=== PATIENT | male | born 1965 | race Hispanic/Latino ===

== ENCOUNTER 2024-03-19 12:12 | Emergency (ER) | payer SELFPAY ==
[2024-03-19 12:29] LABS: Absolute Basophils 0.1 K/uL (0-0.5); Absolute Eosinophils 0.4 K/uL (0-0.5); Absolute Monocytes 0.5 K/uL (0.1-1.3); Absolute Neutrophil 5.6 K/uL (1.8-8.0); Basophils % 0.9 % (0-1.3); Eosinophils % 4.2 % (0-4.4); Hematocrit 43.7 % (39.6-49.0); Hemoglobin 14.6 g/dL (13.6-17.9); Lymphocytes % 31.2 % (15.3-44.8); MCH 29.1 pg (27.0-35.0); MCHC 33.5 g/dL (32.0-36.0); MPV 9.2 fL (7.6-11.3); Monocytes % 5.5 % (3.3-12.3); Neutrophils % 58.2 % (41.7-73.7); Platelets 221 thou/uL (152-406); RBC Red Blood Cell Count 5.02 M/uL (4.33-5.43); Red Cell Distribution Width 13.4 % (12.1-15.2)
[2024-03-19 12:38] LABS: PT Prothrombin Time 11.3 SECONDS (9.4-12.5); PTT, Activated Partial Thromb 33.8 SECONDS (24.3-36.9); Protime INR 1.01
[2024-03-19 12:40] LABS: Anion Gap 8.1 mEq/L (5.0-15.0); Potassium 4.1 mEq/L (3.5-5.1)
[2024-03-19 13:35] LABS: D-Dimer 0.364 FEUug/mL (0-0.500)
[2024-03-19] MEDS ORDERED: CROTALIDAE ANTIVENIM 1 GM VIAL IV STA (13:36)
--- NOTE | 2024-03-19 18:43 | ER ---
Nurse's Notes [facility] Name: Tom Hong Age: 58 yrs Sex: Male : 1965 Arrival Date: 03/19/2024 Time: 12:12 Bed 2 Private MD: Diagnosis: Toxic effect of snake venom Presentation: 03/19 12:24 Chief complaint: Patient states: "About 30 minutes [employer], [place] and mb9 got bit by a latisha head snake on my left hand.". Coronavirus screen: Vaccine status: Patient reports being unvaccinated. Ebola Screen: No symptoms or risks identified at this time. Initial Sepsis Screen: Does the patient meet any 2 criteria? No. Patient's initial sepsis screen is negative. Does the patient have a suspected source of infection? No. Patient's initial sepsis screen is negative. Risk Assessment: Do you want to hurt yourself or someone else? Patient reports no desire to harm self or others. Onset of symptoms was March 19, 2024. 12:24 Acuity: ALLISON 2 mb9 12:24 Method Of Arrival: Ambulatory mb9 Triage Assessment: 12:22 General: Appears in no apparent distress. Behavior is calm, cooperative. Pain: mb9 Complains of pain in left hand Pain radiates to left arm Pain currently is 5 out of 10 on a pain scale. Quality of pain is described as numb, Pain began suddenly, Is continuous. EENT: No signs and/or symptoms were reported regarding the EENT system. Neuro: Gutierrez Agitation-Sedation Scale (RASS): 0 - Alert and Calm Level of Consciousness is awake, alert, obeys commands, Oriented to person, place, time, situation, Appropriate for age. Cardiovascular: Heart tones S1 S2 present Patient's skin is warm and dry. Respiratory: Airway is patent Respiratory effort is even, unlabored, Respiratory pattern is regular, symmetrical. GI: Abdomen is flat, non-distended. : No signs and/or symptoms were reported regarding the genitourinary system. Derm: Skin is pink, warm \\T\\ dry. Musculoskeletal: Swelling present in left hand. Injury Description: Bite sustained to left hand caused by latisha head snake is superficial, was sustained 30-60 minutes ago. Historical: - Allergies: 12:22 No Known Allergies; mb9 - Home Meds: 12:22 None [Active]; mb9 - PMHx: 12:22 None; mb9 - PSHx: 12:22 None; mb9 - Immunization history:: Adult Immunizations up to date. - Infectious Disease History:: Denies. - Social history:: Smoking status: Patient denies any tobacco usage or history of. Screenin:26 [facility] ED Fall Risk Assessment (Adult) History of falling in the last 3 months, mb9 including since admission No falls in past 3 months (0 pts) Confusion or Disorientation No (0 pts) Intoxicated or Sedated No (0 pts) Impaired Gait No (0 pts) Mobility Assist Device Used No (0 pt) Altered Elimination No (0 pt) Score/Fall Risk Level 0 - 2 = Low Risk Oriented to surroundings, Maintained a safe environment, Assessed \\T\\ reinforced patient's understanding of fall precautions. Abuse screen: Denies threats or abuse. Nutritional screening: No deficits noted. Tuberculosis screening: No symptoms or risk factors identified. Assessment: 12:26 Reassessment: see triage assessment. mb9 12:54 Reassessment: No changes from previously documented assessment. Patient and/or family mb9 updated on plan of care and expected duration. Pain level reassessed. Patient is alert, oriented x 3, equal unlabored respirations, skin warm/dry/pink. 13:27 Reassessment: Patient appears in no apparent distress at this time. No changes from ld1 previously documented assessment. Patient and/or family updated on plan of care and expected duration. Pain level reassessed. 13:45 Reassessment: No changes from previously documented assessment. Patient and/or family mb9 updated on plan of care and expected duration. Pain level reassessed. Patient is alert, oriented x 3, equal unlabored respirations, skin warm/dry/pink. 14:35 Reassessment: No changes from previously documented assessment. Patient and/or family mb9 updated on plan of care and expected duration. Pain level reassessed. Patient is alert, oriented x 3, equal unlabored respirations, skin warm/dry/pink. 15:35 Reassessment: No changes from previously documented assessment. Patient and/or family mb9 updated on plan of care and expected duration. Pain level reassessed. Patient states feeling better. Patient states symptoms have improved. 16:21 Reassessment: Patient appears in no apparent distress at this time. No changes from ld1 previously documented assessment. Patient and/or family updated on plan of care and expected duration. Pain level reassessed. Patient is alert, oriented x 3, equal unlabored respirations, skin warm/dry/pink. 17:12 Reassessment: No changes from previously documented assessment. Patient and/or family mb9 updated on plan of care and expected duration. Pain level reassessed. Patient is alert, oriented x 3, equal unlabored respirations, skin warm/dry/pink. 18:30 Reassessment: No changes from previously documented assessment. Patient and/or family mb9 updated on plan of care and expected duration. Pain level reassessed. Patient is alert, oriented x 3, equal unlabored respirations, skin warm/dry/pink. Vital Signs: 12:26 BP 141 / 100; Pulse 64; Resp 20; Temp 98.42; Pulse Ox 95% on R/A; Weight 78.93 kg; ar6 Height 5 ft. 8 in. ; Pain 0/10; 12:41 BP 146 / 93; Pulse 63; Resp 18; Pulse Ox 100% ; mb9 13:27 BP 124 / 81; Pulse 50; Resp 17; Pulse Ox 94% on R/A; ld1 13:45 BP 138 / 83; Pulse 56; Resp 18; Pulse Ox 100% on R/A; mb9 14:31 BP 126 / 89; Pulse 59; Resp 18; Pulse Ox 97% on R/A; mb9 15:34 BP 112 / 83; Pulse 51; Resp 16; Pulse Ox 100% on R/A; mb9 16:21 BP 122 / 86; Pulse 61; Resp 18; Pulse Ox 98% on R/A; ld1 17:35 BP 141 / 84; Pulse 55; Resp 18; Pulse Ox 98% on R/A; mb9 19:07 BP 134 / 84; Pulse 57; Resp 18; Pulse Ox 100% on R/A; mb9 12:26 Body Mass Index 26.46 (78.93 kg, 172.72 cm) ar6 12:26 Pain Scale: Adult ar6 ED Course: 12:12 Patient arrived in ED. ec2 12:12 Tom Martinez MD is Attending Physician. ec2 12:15 Initial lab(s) drawn, by me, sent to lab. Inserted saline lock: 18 gauge in right upper mb9 arm, using aseptic technique. Blood collected. Flushed with 10 mL NS. 12:20 Cathleen Monique, RN is Primary Nurse. mb9 12:22 Arm band placed on. mb9 12: Triage completed. mb9 12:27 Placed in gown. Bed in low position. Call light in reach. Side rails up X 1. Provided mb9 Education on: press call light if needing anything. Client placed on continuous cardiac and pulse oximetry monitoring. NIBP monitoring applied. laboratory monitor on. : Door closed. Noise minimized. Warm blanket given. Pillow given. Ice pack to injury. mb9 12:31 No provider procedures requiring assistance completed. mb9 12: EKG done, by ED staff, reviewed by Tom Martinez MD. mb9 19:07 IV discontinued, intact, bleeding controlled, No redness/swelling at site. Pressure mb9 dressing applied. Administered Medications: 12:46 Drug: CroFab IV 6 vials IV at calculated rate once; may repeat at >=1 hour intervals mb9 until initial control of symptoms Route: IV; Rate: calculated rate; Site: right upper arm; 19:07 Follow up: Response: No adverse reaction; IV Status: Completed infusion mb9 Medication: 12:27 VIS not applicable for this client. mb9 Outcome: 18:43 Discharge ordered by . ec2 19:08 Discharged to home ambulatory, with family, mb9 19:08 Condition: stable 19:08 Discharge instructions given to patient, family, Instructed on discharge instructions, follow up and referral plans. Demonstrated understanding of instructions, follow-up care, 19:08 Patient left the ED. mb9 Signatures: Lilibeth Christianson RN RN ld1 Cathleen Monique, RN RN [id number] Tom Martinez MD MD ec2 Marj Damon RN RN ar6
--- NOTE | 2024-03-19 18:43 | EDPHYS ---
Physician Documentation [facility] Name: Tom Hong Age: 58 yrs Sex: Male : 1965 Arrival Date: 03/19/2024 Time: 12:12 Bed 2 Private MD: ED Physician Tom Martinez HPI: 03/19 12:15 This 58 yrs old Male presents to ER via Unassigned with complaints of snake ec2 bite. 12:15 Patient arrives today due to concern for snakebite. Patient reports that he was bitten ec2 by a copperhead snake approximately 25 minutes prior to arrival. No other concerns, no other injuries.. Historical: - Allergies: 12:22 No Known Allergies; mb9 - Home Meds: 12:22 None [Active]; mb9 - PMHx: 12:22 None; mb9 - PSHx: 12:22 None; mb9 - Immunization history:: Adult Immunizations up to date. - Infectious Disease History:: Denies. - Social history:: Smoking status: Patient denies any tobacco usage or history of. ROS: 12:15 Constitutional: as per hpi ec2 Exam: 12:15 Constitutional: GEN: NAD Head: atraumatic Eyes: EOMI Ears: External ears are ec2 normal. CV: regular rate LUNGS: no respiratory distress ABD: non-distended SKIN: 2 puncture wounds noted just on the L middle finger, edema noted extending from the hand to the wrist. MSK: no evidence of trauma Vital Signs: 12:26 BP 141 / 100; Pulse 64; Resp 20; Temp 98.42; Pulse Ox 95% on R/A; Weight 78.93 kg; ar6 Height 5 ft. 8 in. ; Pain 0/10; 12:41 BP 146 / 93; Pulse 63; Resp 18; Pulse Ox 100% ; mb9 13:27 BP 124 / 81; Pulse 50; Resp 17; Pulse Ox 94% on R/A; ld1 13:45 BP 138 / 83; Pulse 56; Resp 18; Pulse Ox 100% on R/A; mb9 14:31 BP 126 / 89; Pulse 59; Resp 18; Pulse Ox 97% on R/A; mb9 15:34 BP 112 / 83; Pulse 51; Resp 16; Pulse Ox 100% on R/A; mb9 16:21 BP 122 / 86; Pulse 61; Resp 18; Pulse Ox 98% on R/A; ld1 17:35 BP 141 / 84; Pulse 55; Resp 18; Pulse Ox 98% on R/A; mb9 19:07 BP 134 / 84; Pulse 57; Resp 18; Pulse Ox 100% on R/A; mb9 12:26 Body Mass Index 26.46 (78.93 kg, 172.72 cm) ar6 12:26 Pain Scale: Adult ar6 MDM: 12:12 Patient medically screened. ec2 12:15 Data reviewed: vital signs. ED course: Patient arrives today for evaluation of a ec2 snakebite, concerning for copperhead snake envenomation. Examination remarkable for skin findings as above. Will proceed with CroFab. Will obtain lab work as well.. 12:40 ED course: EKG independently reviewed and interpreted by me, shows normal sinus rhythm, ec2 rate of 63, no acute ST segment ovation's, nonspecific T wave abnormalities noted in 3 and aVF. . 13:37 ED course: On reassessment patient with no progression in symptoms. Will continue to ec2 monitor for minimum of 6 hours.. 13:37 ED course: Metabolic profile is reassuring, CBC without any platelet abnormalities. ec2 Coagulation profile is nonactionable, D-dimer within normal ranges. Will continue to monitor. . 15:31 ED course: On reassessment patient with no progression in symptoms. . ec2 18:42 ED course: On reassessment patient with marked improvement in his symptoms, patient ec2 with no worsening symptoms and does not require repeat dosing of his CroFab. Will discharge home. Return precautions given. . 03/19 12:14 Order name: Basic Metabolic Panel; Complete Time: 13:37 ec2 03/19 12:14 Order name: CBC with Diff; Complete Time: 13:37 ec2 03/19 12:14 Order name: PT-INR; Complete Time: 13:37 ec2 03/19 12:14 Order name: Ptt, Activated; Complete Time: 13:37 ec2 03/19 12:56 Order name: Fibrinogen; Complete Time: 13:37 ec2 03/19 12:56 Order name: D-Dimer; Complete Time: 13:37 ec2 03/19 12:14 Order name: EKG; Complete Time: 12:14 ec2 03/19 12:14 Order name: Cardiac monitoring; Complete Time: ec2 03/19 12:14 Order name: EKG - Nurse/Tech; Complete Time: ec2 03/19 12:14 Order name: IV Saline Lock; Complete Time: ec2 03/19 12:14 Order name: Labs collected and sent; Complete Time: ec2 03/19 12:14 Order name: O2 Per Protocol; Complete Time: ec2 03/19 12:14 Order name: O2 Sat Monitoring; Complete Time: ec2 03/19 12:15 Order name: Ice pack; Complete Time: : ec2 Administered Medications: 12:46 Drug: CroFab IV 6 vials IV at calculated rate once; may repeat at >=1 hour intervals mb9 until initial control of symptoms Route: IV; Rate: calculated rate; Site: right upper arm; 19:07 Follow up: Response: No adverse reaction; IV Status: Completed infusion mb9 Disposition Summary: 03/19/24 18:43 Discharge Ordered Notes: Location: Home ec2 Condition: Stable ec2 Diagnosis - Toxic effect of snake venom ec2 Followup: ec2 - With: Private Physician - When: - Reason: Recheck today's complaints Discharge Instructions: - Discharge Summary Sheet ec2 - Snake Bite ec2 Forms: - Medication Reconciliation Form ec2 - Antibiotic Education ec2 - Prescription Opioid Use ec2 - Patient Portal Instructions ec2 - Leadership Thank You Letter ec2 Signatures: Dispatcher [employer] Cathleen Gary RN RN mb9 Tom Martinez MD MD ec2 Corrections: (The following items were deleted from the chart) 12:57 12:57 FIBRINOGEN+COAG.LAB.BRZ ordered. EDMS EDMS 12:57 12:57 D-DIMER+COAG.LAB.BRZ ordered. EDMS EDMS
[2024-03-19 19:41] VITALS: BP 134/84; O2SAT 100
--- NOTE | 2024-03-23 12:50 | EKG ---
Test Date: 2024-03-19 Test Time: 12:34:29 Tobacco Drier Operator: AZUL MEASUREMENT RESULTS: Intervals: Rate: 63 MO: 124 QRSD: 80 QT: 398 QTc: 407 [place]: P: 40 MO: 124 QRS: 20 T: -25 INTERPRETIVE STATEMENTS: Normal sinus rhythm ST & T wave abnormality, consider inferior ischemia ST & T wave abnormality, consider anterolateral ischemia Abnormal ECG No previous ECG available for comparison Electronically Signed On 03-23-24 12:43:20 CDT by Alex Darnell
== END 2024-03-19 19:08 | disposition home or self-care (01) ==
LOC: ER 12:12
DX: T63.091A Toxic effect of venom of other snake, accidental (unintentional), initial encounter (principal)
CPT/HCPCS: 36415; 80048; 85025; 85379; 85384; 85610; 85730; 93005; 96365; 96366; 99285